=== PATIENT | female | born 1975 | race Caucasian/White ===

== ENCOUNTER → 2020-08-23 | Outpatient (CLI) | payer OTHER ==
[2020-08-23 06:52] LABS: ALBUMIN 3.8 g/dL (3.4-5.0); CALCIUM 8.5 mg/dL (8.5-10.1); CREATININE 1.1 mg/dL (0.6-1.3); POTASSIUM 4.1 mmol/L (3.5-5.1); TOTAL BILIRUBIN 0.4 mg/dL (<0.1-1.0); TOTAL PROTEIN 7.1 g/dL (6.4-8.2)
== END ==
LOC: M.LAB 06:16
DX: F31.9 Bipolar disorder, unspecified (principal)

== ENCOUNTER → 2021-01-22 | Outpatient (CLI) | payer OTHER ==
[2021-01-22 11:58] LABS: HEMOGLOBIN 15.5 gm/dL (14.0-18.0); MCH 32.4 pg (26.0-34.0); MCHC 35.2 g/dL (28.0-37.0); MCV 91.9 fL (80.0-100.0); MPV 8.1 fl. (7.2-11.1); RBC 4.78 mil/uL (4.50-6.00)
[2021-01-22 12:12] LABS: ALBUMIN 3.8 g/dL (3.4-5.0); CALCIUM 8.5 mg/dL (8.5-10.1); CREATININE 0.9 mg/dL (0.6-1.3); POTASSIUM 3.9 mmol/L (3.5-5.1); TOTAL BILIRUBIN 0.6 mg/dL (<0.1-1.0); TOTAL PROTEIN 7.1 g/dL (6.4-8.2)
== END ==
LOC: EDSEX 11:35 → M.LAB 11:35
DX: F31.9 Bipolar disorder, unspecified (principal)

== ENCOUNTER → 2021-07-21 | Outpatient (CLI) | payer OTHER ==
[2021-07-21 12:42] LABS: ALBUMIN 3.6 g/dL (3.4-5.0); CALCIUM 8.6 mg/dL (8.5-10.1); TOTAL BILIRUBIN 0.5 mg/dL (<0.1-1.0)
== END ==
LOC: M.LAB 12:00
DX: F31.9 Bipolar disorder, unspecified (principal)